=== PATIENT | female | born 1980 | race Caucasian/White ===

== ENCOUNTER 2017-02-27 22:31 | Emergency (ER) | payer MEDICAID ==
[2017-02-27 23:46] VITALS: BP 124/86
== END 2017-02-27 23:46 | disposition home or self-care (01) ==
LOC: ED 22:31
DX: S39.012A Strain of muscle, fascia and tendon of lower back, initial encounter (principal); Z79.1 Long term (current) use of non-steroidal anti-inflammatories (NSAID); X58.XXXA Exposure to other specified factors, initial encounter; Y93.E2 Activity, laundry; Y92.89 Other specified places as the place of occurrence of the external cause; Y99.8 Other external cause status
CPT/HCPCS: J1885

== ENCOUNTER 2017-09-07 21:33 | Emergency (ER) | payer MEDICAID ==
[~2017-09-07] VITALS: Ht 157.5 cm; Wt 62.6 kg
[2017-09-07 21:57] VITALS: BP 123/76; Ht 157.5 cm; Wt 62.6 kg
== END 2017-09-08 03:32 | disposition left against medical advice (07) ==
LOC: ED 21:33
DX: Z53.21 Procedure and treatment not carried out due to patient leaving prior to being seen by health care provider (principal)